=== PATIENT | female | born 1990 | race American Indian/Alaskan Native ===

== ENCOUNTER 2016-08-23 12:10 | Outpatient (CLI) | payer MEDICARE ==
[2016-08-23 14:28] VITALS: BP 120/57
[2016-08-23 15:52] LABS: Bacteria,Urine 4+ /HPF (Negative); Bilirubin,Urine NEG (Negative); Blood,Urine NEG (Negative); Ketones,Urine NEG (Negative); Leukocyte Esterase,Urine LG (Negative); Nitrite,Urine NEG (Negative); Protein,Urine <15 mg/dL mg/dL (Negative); Urobilinogen,Urine < 2.0 mg/dL (<2.0)
[2016-08-23] MEDS ORDERED: LACTATED RINGERS 500 ML IV ONE (16:23)
== END 2016-08-23 16:39 | disposition home or self-care (01) ==
LOC: TRG 12:10
PROVIDERS: ATTEND Obstetrics & Gynecology
DX: O47.9 False labor, unspecified (principal); Z3A.00 Weeks of gestation of pregnancy not specified
CPT/HCPCS: 81001

== ENCOUNTER 2016-10-02 10:10 | Outpatient (CLI) | payer MEDICARE ==
[2016-10-02 10:41] VITALS: BP 115/64
== END 2016-10-02 11:40 | disposition home or self-care (01) ==
LOC: TRG 10:10
PROVIDERS: ATTEND Specialist
DX: O62.9 Abnormality of forces of labor, unspecified (principal); O47.03 False labor before 37 completed weeks of gestation, third trimester; Z3A.37 37 weeks gestation of pregnancy
CPT/HCPCS: 59025

== ENCOUNTER 2016-10-02 22:38 | Inpatient (IN) | payer MEDICARE ==
[2016-10-02] MEDS ORDERED: PITOCin/NS 20 UNIT/1000ML DRIP 20,000 MILLIUNITS/1,000 ML BAG IV ONE (22:47)
[2016-10-02] MEDS ORDERED: PERCOCET 5/325 PO PRN (23:20)
[2016-10-02] MEDS ORDERED: TUCKS PAD TP PRN (23:20)
[2016-10-02] MEDS ORDERED: BENADRYL PO PRN (23:20)
[2016-10-02] MEDS ORDERED: DULCOLAX PR PRN (23:20)
[2016-10-02] MEDS ORDERED: PHENERGAN PR PRN (23:20)
[2016-10-02] MEDS ORDERED: LANSINOH TP PRN (23:20)
[2016-10-02] MEDS ORDERED: PHENERGAN PO PRN (23:20)
[2016-10-02] MEDS ORDERED: MILK OF MAGNESIA PO PRN (23:20)
[2016-10-02] MEDS ORDERED: TYLENOL PO PRN (23:20)
[2016-10-02] MEDS ORDERED: DERMOPLAST TP PRN (23:20)
[2016-10-02] MEDS ORDERED: ZOFRAN IV PRN (23:20)
--- NOTE | 2016-10-02 23:41 | History and Physical Report ---
History of Present Illness Date of examination: 10/02/16 Date of admission: 10/02/16 22:38 Chief complaint: pt delivered at home, pt states care in [facility]. No prenatals are available at this time Past History Past Medical History: no pertinent history Past Surgical History: other (crainiotomy) Family/Genetic History: none Social history: no significant social history - Obstetrical History Expected Date of Delivery: 10/18/16 Actual Gestation: 37 Week(s) 5 Day(s) : 3 Number of Living Children: 2 Medications and Allergies Allergies Allergy/AdvReac Type Severity Reaction Status Date / Time methylphenidate HCl Allergy Swelling Verified 01/15/16 19:25 [From Ritalin] risperidone [From Risperdal] Allergy Swelling Verified 01/15/16 19:25 Home Medications Medication Instructions Recorded Confirmed Last Taken Type Diphenhydramine HCl [Benadryl 25 mg PO QHS 01/15/16 01/15/16 01/14/16 History Allergy TAB] [place] Carbonate 300 mg PO DAILY 01/15/16 01/15/16 01/15/16 History Sulfamethoxazole/Trimethoprim 1 each PO BID #6 tablet 01/15/16 Unknown Rx [Bactrim DS TAB] metroNIDAZOLE [Flagyl] 500 mg PO Q12HR #14 tab 01/15/16 Unknown Rx Active Meds: Active Medications Acetaminophen (Tylenol) 650 mg PO Q4H PRN PRN Reason: Pain MILD(1-3)/Fever >100.5/JOHNSON Benzocaine/Menthol (Dermoplast) 1 spray TP PRN PRN PRN Reason: Episiotomy Pain Bisacodyl (Dulcolax) 10 mg [place] BID PRN PRN Reason: Constipation Diphenhydramine HCl (Benadryl) 25 mg PO Q6H PRN PRN Reason: Itching Oxytocin/Sodium Chloride (Pitocin/Ns 20 Unit/1000ml Drip) 20 unit in 1,000 mls @ 250 mls/hr IV TITR [facility] Last Admin: 10/02/16 23:34 Dose: 250 mls/hr Ibuprofen (Motrin) 600 mg PO Q6HR [facility] Magnesium Hydroxide (Milk Of Magnesia) 30 ml PO HS PRN PRN Reason: Constipation Multi-Ingredient Ointment (Lansinoh) 1 applic TP PRN PRN PRN Reason: Sore Nipples Ondansetron HCl (Zofran) 4 mg IV Q8H PRN PRN Reason: Nausea And Vomiting Oxycodone/Acetaminophen (Percocet 5/325) 2 tab PO Q4H PRN PRN Reason: Pain, Moderate (4-6) Promethazine HCl (Phenergan) 25 mg [place] Q6H PRN PRN Reason: Nausea And Vomiting Promethazine HCl (Phenergan) 25 mg PO Q6H PRN PRN Reason: Nausea And Vomiting Sodium Chloride (Sodium Chloride Flush Syringe 10 Ml) 10 ml IV PRN PRN PRN Reason: LINE FLUSH Witch Svetlana/Glycerin (Tucks Pad) 1 each TP PRN PRN PRN Reason: Hemorrhoid/cleansing/soothing Review of Systems All systems: negative Gastrointestinal: abdominal pain Genitourinary: vaginal bleeding - Vital Signs Vital signs: Vital Signs Temp Resp 98.5 F 18 10/02/16 22:58 10/02/16 22:58 Temp Pulse Resp BP Pulse Ox 98.5 F 90 18 115/61 66 L 10/02/16 22:58 10/02/16 23:33 10/02/16 22:58 10/02/16 23:33 10/02/16 23:26 - Physical Exam Breasts: Positive: deferred Cardiovascular: Regular rate, Normal S1, Normal S2 Abdomen: Positive: normal appearance, soft, normal bowel sounds. Negative: distention, tenderness Vulva: both: normal Vagina: Positive: normal moisture. Negative: discharge Cervix: Negative: lesion, discharge Uterus: Positive: normal size, normal contour Adnexa: both: normal Anus/Rectum: Positive: normal perianal skin, heme negative. Negative: rectal mass, hemorrhoids Extremities: Deep Tendon Reflex Grade: Normal +2 - Obstetrical FHR: other (pt has delivered) Results All other labs normal. Assessment and Plan iup at term, home delivery plan admit- care
[2016-10-02] MEDS ORDERED: PITOCin/NS 20 UNIT/1000ML DRIP 20 UNIT/1,000 ML BAG IV SCH (23:45)
[2016-10-02] MEDS ORDERED: SODIUM CHLORIDE FLUSH SYRINGE 10 ML IV PRN (23:45)
--- NOTE | 2016-10-02 23:55 | Procedure Note ---
OB Delivery Note - Delivery Date of Delivery: 10/02/16 Surgeon: KENRICK DICKENS Estimated blood loss: 200cc - Vaginal Delivery presentation: vertex Delivery induction: none Delivery monitor: none Route of delivery: other (home delivery) Delivery placenta: spontaneous Delivery cord: 3 umbilical vessels Episiotomy: none Delivery laceration: none Anesthesia: none - Infant A at 1 minute: 9 at 5 minutes: 9 Gender: Male (wt 6-2, apgars 9 & 9)
[2016-10-03] MEDS: MOTRIN PO SCH ×4 (00:14→23:55)
[2016-10-03 00:18] LABS: Basophils % (Auto) 0.1 % (0.0-1.8); Eosinophils % (Auto) 0.1 % (0.0-4.3); Hematocrit 30.9 % (30.3-42.9); Mean Corpuscular HGB Conc 33 % (30-34); Mean Corpuscular Hemoglobin 28 pg (28-32); Mean Corpuscular Volume 86 fl (79-97); Platelet Count 294 K/mm3 (140-440); Red Blood Count 3.62 M/mm3 (3.65-5.03); Red Cell Distribution Width 13.4 % (13.2-15.2); White Blood Count 14.7 K/mm3 (4.5-11.0)
--- NOTE | 2016-10-03 00:38 | Event Note ---
Date: 10/03/16 Upon reviewing previous prescriptions it was noted that patient was on lithium. when questioned pt disclosed that she was on lithium but stopped during . does not have a psychiatrist at this time because insurance changed. Will get psychiatric consult prior to discharge.
[2016-10-03 00:57] LABS: Urine Drugs of Abuse Note Disclamer
--- NOTE | 2016-10-03 07:13 | Progress Note ---
Assessment and Plan ppd 1 s/p . Requesting records. psychiatry consult pending Subjective - Subjective Date of service: 10/03/16 Principal diagnosis: ppd 1 s/p Patient reports: appetite normal, voiding normally, pain well controlled : doing well Objective - Vital Signs Latest vital signs: Vital Signs Temp Pulse Pulse Resp BP BP Pulse Ox 10/03/16 05:00 98.8 F 57 L 18 120/64 10/03/16 00:45 98.8 F 68 18 124/70 10/03/16 00:18 87 123/65 10/03/16 00:14 18 10/03/16 00:03 75 115/58 10/02/16 23:48 81 117/59 10/02/16 23:33 90 115/61 10/02/16 23:26 74 66 L 10/02/16 23:18 75 134/68 10/02/16 23:12 71 L 10/02/16 23:03 81 116/72 10/02/16 22:58 98.5 F 18 Intake and Output 10/02/16 10/03/16 10/03/16 22:59 06:59 14:59 Intake Total 1756 Output Total 50 Balance 1706 Intake: IV 750 PITOCin/NS 20 UNIT/1000ML 750 DRIP 20 unit In 1,000 ml @ 250 mls/hr IV TITR [facility] Rx#:[id number] Oral 6 Other 1000 Output: Urine 50 Void 50 Other: Intake, Other Source Saline Solution Total, Intake Amount 1006 Total, Output Amount 50 # Voids Void 1 Weight 85.275 kg - Exam Breasts: Present: deferred Cardiovascular: Present: Regular rate, Normal S1, Normal S2 Lungs: Present: Clear to auscultation Abdomen: Present: normal appearance, soft Vulva: both: normal Uterus: Present: normal, firm Extremities: Present: normal Deep Tendon Reflex Grade: Normal +2 Incision: Present: normal, dry, intact - Labs Labs: Abnormal lab results 10/02/16 Range/Units 23:00 WBC 14.7 H (4.5-11.0) K/mm3 RBC 3.62 L (3.65-5.03) M/mm3 Hgb 10.0 L (10.1-14.3) gm/dl Lymph % (Auto) 8.1 L (13.4-35.0) % Seg Neutrophils % 87.2 H (40.0-70.0) % Seg Neutrophils # 12.8 H (1.8-7.7) K/mm3
[2016-10-03] MEDS: FEOSOL PO SCH ×2 (09:55→21:55)
[2016-10-03 10:07] LABS: HIV-1 Antigen p24 Non React (Non React); HIVR-1/2 Ab Non React (Non React)
[2016-10-03 14:12] LABS: Hematocrit 28.1 % (30.3-42.9); Hemoglobin 9.2 gm/dl (10.1-14.3)
--- NOTE | 2016-10-03 22:28 | Consultation ---
History of Present Illness - Reason for Consult Consult date: 10/03/16 Reason for consult: psychotropic use in the period with liklihood of - Chief Complaint Chief complaint: pt delivered at home, pt states care in [facility]. No prenatals are available at this time - History of Present Psychiatric Illness This is a 25 year old domiciled female s/p NVSD of a term male with a PPH of Bipolar Disorder. Psychiatry was consulted to determine if reinitiation of psychotropic medications for the continued treatment of her Bipolar Disorder is warranted during the period. During my assessment , the patient is pleasant and calm. She is in no acute distress and not endorsing any acute symptoms of depression, chad or psychosis. She does note a sense of shock due to the recent delivery, which occurred in an unexpected manner. During my conversation, the patient noted a previous treatment history with Spiro, as well as historical exposure to risperidone, seroquel and methylphenidate during the course of her treatment. She was initially hospitalized several years ago at [facility] for a acute episode of chad. During that hospitalization she was treated and stabilized on a psychotropic regimen which she doesn't recall. Additionally, she notes several episodes of mood lability during each of her previous two pregnancies associated with treatment discontinuation. Similarly, during this she experienced labile moods with a prominent irritable presentation, but no manic or depressive episode. Currently, again she denies acute symptoms and does not note SI or HI. She denies AH/VH. She denies delusional precept about her or her . Medications and Allergies Allergies Allergy/AdvReac Type Severity Reaction Status Date / Time methylphenidate HCl Allergy Swelling Verified 01/15/16 19:25 [From Ritalin] risperidone [From Risperdal] Allergy Swelling Verified 01/15/16 19:25 Home Medications Medication Instructions Recorded Confirmed Last Taken Type Diphenhydramine HCl [Benadryl 25 mg PO QHS 01/15/16 01/15/16 01/14/16 History Allergy TAB] Spiro Carbonate 300 mg PO DAILY 01/15/16 01/15/16 01/15/16 History Sulfamethoxazole/Trimethoprim 1 each PO BID #6 tablet 01/15/16 Unknown Rx [Bactrim DS TAB] metroNIDAZOLE [Flagyl] 500 mg PO Q12HR #14 tab 01/15/16 Unknown Rx Ferrous Sulfate [Feosol 325 MG tab] 325 mg PO BID #60 tablet 10/03/16 Unknown Rx Ibuprofen [Motrin 800 MG tab] 800 mg PO Q8HR PRN #30 tablet 10/03/16 Unknown Rx oxyCODONE /ACETAMINOPHEN [Percocet 1 tab PO Q6HR PRN #30 tablet 10/03/16 Unknown Rx 5/325] Active Meds: Active Medications Acetaminophen (Tylenol) 650 mg PO Q4H PRN PRN Reason: Pain MILD(1-3)/Fever >100.5/[place]OHNSON Benzocaine/Menthol (Dermoplast) 1 spray TP PRN PRN PRN Reason: Episiotomy Pain Bisacodyl (Dulcolax) 10 mg [place] BID PRN PRN Reason: Constipation Diphenhydramine HCl (Benadryl) 25 mg PO Q6H PRN PRN Reason: Itching Ferrous Sulfate (Feosol) 325 mg PO BID [facility] Last Admin: 10/03/16 21:55 Dose: 325 mg Oxytocin/Sodium Chloride (Pitocin/Ns 20 Unit/1000ml Drip) 20 unit in 1,000 mls @ 250 mls/hr IV TITR [facility] Last Admin: 10/02/16 23:34 Dose: 250 mls/hr Ibuprofen (Motrin) 600 mg PO Q6HR [facility] Last Admin: 10/03/16 11:37 Dose: Not Given Magnesium Hydroxide (Milk Of Magnesia) 30 ml PO HS PRN PRN Reason: Constipation Multi-Ingredient Ointment (Lansinoh) 1 applic TP PRN PRN PRN Reason: Sore Nipples Ondansetron HCl (Zofran) 4 mg IV Q8H PRN PRN Reason: Nausea And Vomiting Oxycodone/Acetaminophen (Percocet 5/325) 2 tab PO Q4H PRN PRN Reason: Pain, Moderate (4-6) Promethazine HCl (Phenergan) 25 mg [place] Q6H PRN PRN Reason: Nausea And Vomiting Promethazine HCl (Phenergan) 25 mg PO Q6H PRN PRN Reason: Nausea And Vomiting Sodium Chloride (Sodium Chloride Flush Syringe 10 Ml) 10 ml IV PRN PRN PRN Reason: LINE FLUSH Witch Svetlana/Glycerin (Tucks Pad) 1 each TP PRN PRN PRN Reason: Hemorrhoid/cleansing/soothing Mental Status Exam - Vital signs Last Vital Signs Temp 97.5 F L 10/03/16 16:47 Pulse 67 10/03/16 16:47 Resp 18 10/03/16 16:47 BP 120/53 10/03/16 16:47 Pulse Ox 66 L 10/02/16 23:26 - Exam Orientation: time, place, person Affect: normal Mood: appropriate Thought Process: Intact Perceptions: none Speech: normal rate and pattern Concentration: focused Motor activity: normal Level of consciousness: alert Memory: Intact Sleep Symptoms: None Interaction: cooperative Results Result Diagrams: 10/03/16 13:46 Abnormal lab results 10/02/16 10/03/16 Range/Units 23:00 13:46 WBC 14.7 H (4.5-11.0) K/mm3 RBC 3.62 L (3.65-5.03) M/mm3 Hgb 10.0 L 9.2 L (10.1-14.3) gm/dl Hct 28.1 L (30.3-42.9) % Lymph % (Auto) 8.1 L (13.4-35.0) % Seg Neutrophils % 87.2 H (40.0-70.0) % Seg Neutrophils # 12.8 H (1.8-7.7) K/mm3 All other labs normal. Assessment and Plan Assessment and plan: This is a 25 year old domiciled female with a history of Bipolar Disorder s /p NVSD of a term who has discontinued Spiro therapy during the first trimester of her . Consequently, she has developed some mood lability during the intrapartum period. All women are vulnerable to depression , regardless of age, marital status, education level, or socioeconomic status. While it is impossible to predict who will develop PPD, certain risk factors for PPD have been identified, including: previous episode of PPD, depression during , history of depression or bipolar disorder, recent stressful life events, inadequate social supports and marital problems. Many women may consider stopping medication abruptly after learning they are , as Ms. Reina did, but for many women this may carry substantial risks. This, in addition to her history of Bipolar Disorder, presents as a risk for a relapse into a depression during the post- period. At this time, Ms. Reina wishes to breastfeed. Given the many benefits of , some women considering taking psychiatric medications may wish to nurse their infants. When making this decision, several variables must be considered. These include the known and unknown risks of medication exposure for the baby via breast milk , the effects of untreated illness in the mother, and the benefits of and maternal preferences for . To help Ms. Reina make the best decision for her and her , I will review with her the various risks and benefits of each of the likely psychotropics we are considering to treat her Bipolar Disorder.
[2016-10-04] MEDS: MOTRIN PO SCH ×2 (03:09→06:17)
--- NOTE | 2016-10-04 08:26 | Discharge Summary ---
Providers - Providers Date of Admission: 10/02/16 22:38 Date of discharge: 10/04/16 Attending physician: KENRICK DICKENS 10/03/16 00:33 Consult to Mental Health [CONS] Urgent Reason For Exam: Hx of bipolar disorder- was on lithium previously Place consult to:: Tammi Notified:: [id number] Primary care physician: KENRICK DICKENS Hospitalization Reason for admission: other (s/p home delivery. delivery of placenta at hospital) Delivery: Procedure details: removal of placenta and care Episiotomy: none Laceration: none Other procedures: none complications: none Discharge diagnosis: IUP at term delivered baby: male Hospital course: home Condition at discharge: Good Disposition: DISCHARGED TO HOME OR SELFCARE - Discharge Diagnoses (1) (normal spontaneous vaginal delivery) Status: Acute (2) Bipolar 1 disorder Status: Acute (3) Anemia Status: Acute Qualifiers: Anemia type: A Iron deficiency anemia type: I Vitamin B12 deficiency anemia type: V Folate deficiency anemia type: F Bone marrow failure anemia type: B Hemolytic anemia type: H Other causes of anemia: O Comment: Anemia existed prior to delivery, slightlymlower following delivery Plan - Discharge Medications Prescriptions: Ferrous Sulfate [Feosol 325 MG tab] 325 mg PO BID #60 tablet Ibuprofen [Motrin 800 MG tab] 800 mg PO Q8HR PRN #30 tablet PRN Reason: Pain oxyCODONE /ACETAMINOPHEN [Percocet 5/325] 1 tab PO Q6HR PRN #30 tablet PRN Reason: Pain - Provider Discharge Summary Activity: routine, no sex for 6 weeks, no heavy lifting 4 weeks, no strenuous exercise Diet: routine Instructions: routine Additional instructions: [] Smoking cessation referral if applicable(refer to patient education folder for contact #) [] Refer to [facility] Booklet Call your doctor immediately for: * Fever > 100.5 * Heavy vaginal bleeding ( >1 pad per hour) * Severe persistent headache * Shortness of breath * Reddened, hot, painful area to leg or breast * Drainage or odor from incision. * Keep incision clean and dry at all times and follow doctor's instructions regarding bathing/showering - Follow up plan Follow up: KENRICK DICKENS MD [Primary Care Provider] - 6 Weeks
--- NOTE | 2016-10-04 13:04 | Progress Note ---
Subjective - Reason for Consult Consult date: 10/04/16 Reason for consult: previous history of bipolar disorder with lithium discontinuation - Chief Complaint Chief complaint: Not in any acute distress. No SI. No psychosis noted. Mental Status Exam - Vital signs Last Vital Signs Temp 98.3 F 10/04/16 09:00 Pulse 64 10/04/16 09:00 Resp 18 10/04/16 09:00 BP 101/56 10/04/16 09:00 Pulse Ox 66 L 10/02/16 23:26 - Exam Orientation: time, place, person Affect: normal Mood: appropriate Thought Process: Intact Perceptions: none Speech: normal rate and pattern Concentration: focused Motor activity: normal Level of consciousness: alert Memory: Intact Sleep Symptoms: None Interaction: cooperative Assessment and Plan This is a 25 year old domiciled female with a history of Bipolar Disorder s /p NVSD of a term who has discontinued [place] therapy during the first trimester of her . Consequently, she has developed some mood lability during the intrapartum period. All women are vulnerable to depression , regardless of age, marital status, education level, or socioeconomic status. While it is impossible to predict who will develop PPD, certain risk factors for PPD have been identified, including: previous episode of PPD, depression during , history of depression or bipolar disorder, recent stressful life events, inadequate social supports and marital problems. Many women may consider stopping medication abruptly after learning they are , as Ms. Reina did, but for many women this may carry substantial risks. This, in addition to her history of Bipolar Disorder, presents as a risk for a relapse into a depression during the post- period. At this time, Ms. Reina wishes to breastfeed. Given the many benefits of , some women considering taking psychiatric medications may wish to nurse their infants. When making this decision, several variables must be considered. These include the known and unknown risks of medication exposure for the baby via breast milk , the effects of untreated illness in the mother, and the benefits of and maternal preferences for . To help Ms. Reina make the best decision for her and her , I will review with her the various risks and benefits of each of the likely psychotropics we are considering to treat her Bipolar Disorder. 10/04: Patient has decided not to breastfeed. Consequently, she can reinitiate Crestline therapy without concern as the will not have any exposure. Her previous self reported dose was [place] 150 mg Q12H; however, the home medication list shows a [place] 300 mg QHS. At this time she can be discharged with a script for [place] 150 mg po Q12H with the plan to follow up with a psychiatrist in 1 week.
[2016-10-04 15:45] VITALS: BP 126/69
== END 2016-10-04 16:40 | disposition home or self-care (01) | DRG 775 ==
LOC: LD 22:38 → OB 10-03 00:50
PROVIDERS: ADMIT Specialist; ATTEND Specialist
PROC: 10E0XZZ Delivery of Products of Conception, External Approach (ICD-10-PCS; principal; 2016-10-02)
DX: Z39.0 Encounter for care and examination of mother immediately after delivery (principal); O99.355 Diseases of the nervous system complicating the puerperium; Z37.0 Single live birth; O90.81 Anemia of the puerperium; F31.9 Bipolar disorder, unspecified; D64.9 Anemia, unspecified; Z3A.37 37 weeks gestation of pregnancy; Z88.8 Allergy status to other drugs, medicaments and biological substances
CPT/HCPCS: 36415; 80307; 85014; 85018; 85025; 86592; 86706; 86762; 86850; 86900; 86901; 87806; 88307; 99211; G0463; J2590

== ENCOUNTER 2019-09-14 07:25 | Emergency (ER) | payer MEDICARE ==
[2019-09-14] MEDS ORDERED: IBUPROFEN 800 MG TAB PO ONE (11:51)
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
[2019-09-14 12:18] VITALS: BP 107/62
--- NOTE | 2019-09-14 12:46 | XRay Report ---
LUMBAR SPINE 3 VIEWS INDICATION / CLINICAL INFORMATION: low back pain. COMPARISON: None available. FINDINGS: VERTEBRAE: No acute fracture. No significant malalignment. DISC SPACES / FACET JOINTS:No significant abnormality. PARASPINAL SOFT TISSUES:No significant abnormality. Signer Name: Myles Malone MD Signed: 09/14/2019 12:42 PM Workstation Name: [id number]
[2019-09-14 13:27] LABS: Bacteria,Urine 1+ /HPF (Negative); Bilirubin,Urine NEG (Negative); Blood,Urine NEG (Negative); Color,Urine Yellow (Yellow); Mucus,Urine 1+ /HPF; Protein,Urine <15 mg/dL mg/dL (Negative); Urobilinogen,Urine < 2.0 mg/dL (<2.0)
== END 2019-09-14 13:30 | disposition home or self-care (01) ==
LOC: ED 07:25
DX: S39.012A Strain of muscle, fascia and tendon of lower back, initial encounter (principal); F32.9 Major depressive disorder, single episode, unspecified; F17.200 Nicotine dependence, unspecified, uncomplicated; F12.10 Cannabis abuse, uncomplicated; Z79.1 Long term (current) use of non-steroidal anti-inflammatories (NSAID); Z79.899 Other long term (current) drug therapy; Z88.8 Allergy status to other drugs, medicaments and biological substances; V49.59XA Passenger injured in collision with other motor vehicles in traffic accident, initial encounter; Y93.89 Activity, other specified; Y92.488 Other paved roadways as the place of occurrence of the external cause; Y99.8 Other external cause status
CPT/HCPCS: 72100; 81001